=== PATIENT | male | born 1945 | race Caucasian/White ===

== ENCOUNTER → 2017-12-14 | Outpatient (CLI) | payer MEDICARE, BC ==
[~2017-12-14] MED LIST: ANTIDEPRESSANT; ARICEPT5 MG PO; ASPIRIN 32325 MG/TAB PO; CARBIDOPA & LEV1 TA1 PO; CLOPIDOGREL PO; COLACE 100100 MG/CAP PO; CYANOCOBAL1000 MCG/1; DOXYCYCLINE 10100 MG PO; LEVOTHROID0.125 MG PO; LEXAPRO10 MG PO; LIPITOR 10MG10 MG PO; MEDI-FIRST ASP325 MG PO; METOPROLOL SUC100 M2 PO; NAMENDA10 MG PO; PENTASA PO; SYNTHROID0.15 MG PO; TOPROL XL50 MG PO; TYLENOL 325MG325 MG PO; TYLENOL PM 5001 CAP PO; TYLENOL PM EXTR1 TA1 PO; UROXATRAL10 M1 PO; UROXATROL PO; VIAGRA; VIAGRA50 MG PO; ZESTRIL PO; [UNRECOGNIZED DRUG - CODE] PO
[2017-12-14 18:37] LABS: ANION GAP 11 mmol/L (7-16); BLOOD UREA NITROGEN 14 mg/dL (9-20); CALCIUM 8.8 mg/dL (8.4-10.2); CARBON DIOXIDE 26 mmol/L (22-30); CHLORIDE 102 mmol/L (98-107); CREATININE, serum 0.84 mg/dL (0.66-1.25); GLUCOSE 97 mg/dL (74-106); POTASSIUM 4.2 mmol/L (3.4-5.0); SODIUM 139 mmol/L (137-145)
[2017-12-14 18:54] LABS: TROPONIN-I < 0.012 ng/mL (0.000-0.034)
== END ==
LOC: COL.LAB 17:58
PROVIDERS: Internal Medicine Interventional Cardiology
DX: R07.89 Other chest pain (principal); Z95.0 Presence of cardiac pacemaker

== ENCOUNTER → 2017-12-14 | Outpatient (CLI) | payer MEDICARE, BC | LOC: COL.RAD 20:08 | DX: I71.2 Thoracic aortic aneurysm, without rupture (principal); I51.7 Cardiomegaly; S22.080A Wedge compression fracture of T11-T12 vertebra, initial encounter for closed fracture; R07.89 Other chest pain | CPT/HCPCS: Q9967 ==

== ENCOUNTER → 2017-12-14 | Emergency (ER) | payer MEDICARE, BC | LOC: COL.ER 20:01 | DX: Z72.9 Problem related to lifestyle, unspecified (principal) ==

== ENCOUNTER 2018-12-02 09:33 | Emergency (ER) | payer MEDICARE, BC ==
[~2018-12-02] VITALS: Ht 172.7 cm; Wt 90.9 kg
[~2018-12-02 09:33] MED LIST changes: +ARICEPT10 MG PO; +CALCIUM 600/VIT1 CA1 PO; +FLOMAX 0.40.4 MG/CAP PO; +LASIX 20MG TABL20 MG PO; +MULTI VITAMINS1 TAB PO; +NAMENDA 10MG TA10 MG PO; +REQUIP0.25 MG PO; +SYMMETREL100 M1 PO; +TOPROL XL 50MG50 MG PO; +VITAMIN D32000 IU PO
[2018-12-02 09:43] VITALS: TEMP 98.1
[2018-12-02 10:08] LABS: GRAN # 3.5 (1.4-6.5); GRAN % 64.5 % (42.2-75.2); HEMATOCRIT 42.5 % (42.0-52.0); HEMOGLOBIN 14.2 g/dl (13.5-18.0); LYMPH # 1.4 (1.2-3.4); LYMPH % 24.8 % (20.0-51.0); MEAN CELL VOLUME 94 fl (80.0-100.0); MEAN CORPUSCULAR HEMOGLOBIN 31 pg (27.0-31.0); MEAN CORPUSCULAR HGB CONC 33 g/dl (33.0-37.0); MEAN PLATELET VOLUME 8.9 fl (7.4-10.4); MONO # 0.6 (0.1-0.6); MONO % 10.3 % (1.7-9.3); PLATELET COUNT 242 K/mm3 (130-400); RED BLOOD COUNT 4.53 M/mm3 (4.20-5.60); REDCELL DISTRIBUTION WIDTH-CV 13.8 % (11.5-14.5)
[2018-12-02 10:15] LABS: ALBUMIN 4.3 gm/dL (3.5-5.0); CALCIUM 9.3 mg/dL (8.4-10.2); CREATININE, serum 0.77 (0.66-1.25); POTASSIUM 4.2 mmol/L (3.4-5.0); TOTAL PROTEIN 7.5 gm/dL (6.4-8.2)
[2018-12-02 10:26] LABS: TROPONIN-I 0.016 ng/mL (0.000-0.035)
[2018-12-02] MEDS ORDERED: IBU400 MG PO (11:09)
[2018-12-02 11:21] LABS: COLLECTION METHOD CLEAN CATCH
[2018-12-02 11:28] LABS: MUCOUS Present /lpf; PH 5 (5-8); SQUAMOUS EPITHELIAL None Seen /hpf; URINE APPEARANCE Clear; URINE BACTERIA Rare /hpf; URINE BILIRUBIN Negative (NEGATIVE); URINE BLOOD Negative (NEGATIVE); URINE COLOR Yellow; URINE GLUCOSE Negative (NEGATIVE); URINE KETONE Trace (NEGATIVE); URINE LEUKOCYTE ESTERASE Negative (NEGATIVE); URINE NITRATE Negative (NEGATIVE); URINE PROTEIN(semi-quant) Negative (NEGATIVE); URINE RBC 0-2 /hpf; URINE UROBILINOGEN Negative (NEGATIVE)
[2018-12-02 11:59] VITALS: BP 146/68; PULSE 59
== END 2018-12-02 12:00 | disposition home or self-care (01) ==
LOC: COL.ER 09:33
PROVIDERS: Emergency Medicine
DX: M54.5 Low back pain (principal); I25.10 Atherosclerotic heart disease of native coronary artery without angina pectoris; Z79.02 Long term (current) use of antithrombotics/antiplatelets; Z79.82 Long term (current) use of aspirin; Z79.899 Other long term (current) drug therapy; Z95.5 Presence of coronary angioplasty implant and graft; Z86.79 Personal history of other diseases of the circulatory system
CPT/HCPCS: J1885

== ENCOUNTER → 2019-02-21 | Outpatient (CLI) | payer MEDICARE, BC ==
[~2019-02-21] MED LIST changes: +IBU400 MG PO
== END ==
LOC: COL.RAD 12:10
DX: M51.26 Other intervertebral disc displacement, lumbar region (principal); M48.061 Spinal stenosis, lumbar region without neurogenic claudication

== ENCOUNTER 2019-03-08 15:39 | Emergency (ER) | payer MEDICARE, BC ==
[~2019-03-08] VITALS: Ht 172.7 cm; Wt 90.9 kg
[2019-03-08 15:43] VITALS: TEMP 98.2
[2019-03-08 16:52] LABS: COLLECTION METHOD CLEAN CATCH
[2019-03-08 16:59] LABS: PH 6 (5-8); SQUAMOUS EPITHELIAL None Seen /hpf; URINE APPEARANCE Clear; URINE BACTERIA None Seen /hpf; URINE BILIRUBIN Negative (NEGATIVE); URINE BLOOD Negative (NEGATIVE); URINE COLOR Yellow; URINE GLUCOSE Negative (NEGATIVE); URINE KETONE Negative (NEGATIVE); URINE LEUKOCYTE ESTERASE Negative (NEGATIVE); URINE NITRATE Negative (NEGATIVE); URINE PROTEIN(semi-quant) Negative (NEGATIVE); URINE RBC 0-2 /hpf; URINE UROBILINOGEN Negative (NEGATIVE)
[2019-03-08] MEDS ORDERED: LIDODERM 5% PATC1 EA TP (17:27)
[2019-03-08] MEDS ORDERED: FLEXERIL 1010 MG/TAB PO (17:27)
[2019-03-08] MEDS ORDERED: ULTRAM 50MG TAB50 MG PO (17:27)
[2019-03-08] MEDS ORDERED: PREDNISONE20 MG PO (17:27)
[2019-03-08 17:45] VITALS: BP 141/63; PULSE 63
== END 2019-03-08 17:44 | disposition home or self-care (01) ==
LOC: COL.ER 15:39
PROVIDERS: Emergency Medicine
DX: M54.16 Radiculopathy, lumbar region (principal); I25.10 Atherosclerotic heart disease of native coronary artery without angina pectoris; Z95.5 Presence of coronary angioplasty implant and graft; Z95.0 Presence of cardiac pacemaker; Z79.02 Long term (current) use of antithrombotics/antiplatelets; Z79.82 Long term (current) use of aspirin
CPT/HCPCS: J7512

== ENCOUNTER → 2019-04-04 | Outpatient (CLI) | payer MEDICARE, BC ==
[~2019-04-04] MED LIST changes: +FLEXERIL 1010 MG/TAB PO; +LIDODERM 5% PATC1 EA TP; +PREDNISONE20 MG PO; +ULTRAM 50MG TAB50 MG PO
== END ==
LOC: MHCPAIN 10:15
DX: G89.29 Other chronic pain (principal); M47.817 Spondylosis without myelopathy or radiculopathy, lumbosacral region; M54.16 Radiculopathy, lumbar region; M53.3 Sacrococcygeal disorders, not elsewhere classified
CPT/HCPCS: G0463

== ENCOUNTER → 2019-04-12 | Outpatient (CLI) | payer MEDICARE, BC | LOC: MHCPAIN 13:55 | DX: M47.817 Spondylosis without myelopathy or radiculopathy, lumbosacral region (principal); M54.16 Radiculopathy, lumbar region | CPT/HCPCS: J1100; Q9967 ==

== ENCOUNTER → 2019-05-17 | Outpatient (CLI) | payer MEDICARE, BC | LOC: MHCPAIN 12:26 | DX: M54.16 Radiculopathy, lumbar region (principal) | CPT/HCPCS: J1100; Q9967 ==

== ENCOUNTER → 2019-06-19 | Outpatient (CLI) | payer MEDICARE, BC | LOC: MHCPAIN 13:05 | DX: M47.817 Spondylosis without myelopathy or radiculopathy, lumbosacral region (principal); M54.16 Radiculopathy, lumbar region | CPT/HCPCS: G0463 ==

== ENCOUNTER 2020-01-26 20:24 | Inpatient (IN) | payer MEDICARE, BC ==
[~2020-01-26] VITALS: Ht 175.3 cm; Wt 92.2 kg
[2020-01-26 21:19] LABS: GRAN # 3.6 (1.4-6.5); GRAN % 76.4 % (42.2-75.2); LYMPH # 0.8 (1.2-3.4); LYMPH % 16.8 % (20.0-51.0); MEAN CELL VOLUME 90 fl (80.0-100.0); MEAN CORPUSCULAR HEMOGLOBIN 30 pg (27.0-31.0); MEAN CORPUSCULAR HGB CONC 33 g/dl (33.0-37.0); MEAN PLATELET VOLUME 10.4 fl (7.4-10.4); MONO # 0.3 (0.1-0.6); MONO % 6.4 % (1.7-9.3); PLATELET COUNT 200 K/mm3 (130-400); RED BLOOD COUNT 3.97 M/mm3 (4.20-5.60); REDCELL DISTRIBUTION WIDTH-CV 14.4 % (11.5-14.5)
[2020-01-26 21:22] LABS: HEMATOCRIT 35.9 % (42.0-52.0)
[2020-01-26 21:30] LABS: ALBUMIN 3.7 gm/dL (3.5-5.0); BILIRUBIN,TOTAL 0.8 mg/dL (0.0-1.0); CALCIUM 8.3 mg/dL (8.4-10.2); CREATININE, serum 0.85 (0.66-1.25); POTASSIUM 3.5 mmol/L (3.4-5.0); TOTAL PROTEIN 6.9 gm/dL (6.4-8.2)
[2020-01-26 21:43] LABS: TROPONIN-I 0.067 ng/mL (0.000-0.035)
--- NOTE | 2020-01-27 00:20 | NUR ---
Admitted to medical floor from ER- DX pneumonia, covid + pt alert/partially oriented, knows year/president, could not think of the month. On contact/Droplet Isolation. Sanjana MCLAUGHLIN here to see pt- order to decrease IV fluids of NS to 75cc/hr, pt has some edema to lower extremities . Dry cough, no o2 needed at this time. Sats on room air 94-95%. Pt denies any pain- call light in reach, understands not to get up without help- urinal at bedside.
[2020-01-27] MEDS ORDERED: TYLENOL 325MG325 MG PO (01:32)
[2020-01-27] MEDS ORDERED: SYMMETREL100 M1 PO (01:34)
[2020-01-27] MEDS ORDERED: ASACOL HD800 MG PO (01:35)
[2020-01-27] MEDS ORDERED: ASPIRIN 81M81 MG/TA2 PO (01:36)
[2020-01-27] MEDS ORDERED: LIPITOR 40MG TA40 MG PO (01:36)
[2020-01-27] MEDS ORDERED: CALCIUM 600MG+D1 TAB PO (01:38)
[2020-01-27] MEDS ORDERED: SINEMET 25/101 UDTAB PO (01:39)
[2020-01-27] MEDS ORDERED: CYANOCOBAL1000 MCG/M IM (01:42)
[2020-01-27] MEDS ORDERED: FLEXERIL 1010 MG/TAB PO (01:43)
[2020-01-27] MEDS ORDERED: DELSYM30 MG/5 ML PO (01:44)
[2020-01-27] MEDS ORDERED: BENADRYL25 M2 PO (01:45)
[2020-01-27] MEDS ORDERED: ARICEPT10 MG PO (01:47)
[2020-01-27] MEDS ORDERED: LASIX 20MG TABL20 MG PO (01:47)
[2020-01-27] MEDS ORDERED: MOTRIN 200200 MG/TAB PO (01:48)
[2020-01-27] MEDS ORDERED: SYNTHROID 0.10.15 MG PO (01:50)
[2020-01-27] MEDS ORDERED: LEXAPRO20 MG PO (01:50)
[2020-01-27] MEDS ORDERED: LIDODERM 5% PATC1 EA TP (01:51)
[2020-01-27] MEDS ORDERED: ONE-A-DAY ESSE1 EACH PO (01:52)
[2020-01-27] MEDS ORDERED: NAMENDA 10MG TA10 MG PO (01:52)
[2020-01-27] MEDS ORDERED: REQUIP0.25 MG PO (01:54)
[2020-01-27] MEDS ORDERED: TOPROL XL100 MG PO (02:05)
[2020-01-27] MEDS ORDERED: ULTRAM 50MG TAB50 MG PO (02:06)
[2020-01-27] MEDS ORDERED: MASON NATURAL2000 IU PO (02:06)
[2020-01-27 02:39] VITALS: BP 160/64; PULSE 62; TEMP 99.4
[2020-01-27] MEDS ORDERED: PROAIR RES117 MCG/Ac IH (02:46)
[2020-01-27] MEDS ORDERED: FLOMAX 0.40.4 MG/CAP PO (03:02)
--- NOTE | 2020-01-27 03:15 | NUR ---
Called to patients room by farm technician who was here to draw another troponin level- pt was out of bed with bed alarm going off, standing in bathroom taking off his depends with loose stool all over the floor and toilet and his gown- L/AC IV was also pulled out-- helped patient clean up, walked with him back to the chair, new linens on bed, urinal at bedside emptied of 600cc urine. Back to bed - alarm on {made sure it was connected to the call light system} no requests per patient- VSS. Sanjana MCLAUGHLIN informed of troponin of 0.089- no new orders. Pt denies chest pain or SOB. Contact/Droplet Isolation-
[2020-01-27 04:43] VITALS: BP 156/70; PULSE 76; TEMP 98.7
--- NOTE | 2020-01-27 06:30 | NUR ---
Has been resting for past couple hours- IV fluids continue at 75cc/hr per right AC IV site.
[2020-01-27 09:00] VITALS: BP 138/84; PULSE 63; TEMP 98.2
--- NOTE | 2020-01-27 09:45 | NUR ---
PT IN BED, NEEDING TO USE RESTROOM, STAND PIVOT TO BEDSIDE COMMODE. PT HAD LARGE AMOUNT OF HOYOS DIHARREA. PT SAYS HE HAS THIS EVERY 2-3 HOURS. PT PLEASANT, AOX4, VERY HARD OF HEARING, MEDICATION HUNG, VITALS REVIEWED, MEDICATIONS GIVEN, ASSESSMENT PERFORMED, LUNGS CTA. PT DENIES PAIN/DISCOMFORT. PT INCONTINENT OF URINE, BRIEF CHANGED ALONZO CARE PROVIDED, SHEETS CHANGED. IV SITE INTACT LAC. LABS DRAWN. PT REPORTS SOA BUT NO VISIBLE DISTRESS NOTED WITH EXERTION OR AT REST. PT HAS GLASSES IN PLACE, BED IN LOW POSITION, BED ALARM ON, EDUCATED ORNAMENTAL METAL FABRICATOR APPRENTICE LIGHT AND CALL LIGHT WITHIN REACH. FALL GOWN ADN SOCKS ON, UPDATED PT DAUGHTER, SHE REPORTS ONLY WANTING INFORMATION SHARED WITH HER AND HER BROTHER RJ WHOM ARE DPOA'S. PRIVACY PASSWORD PROVIDED. NO OTHER NEEDS AT THIS TIME.
[2020-01-27 10:33] LABS: GRAN # 4.2 (1.4-6.5); HEMOGLOBIN 11.8 g/dl (13.5-18.0); LYMPH # 0.5 (1.2-3.4); LYMPH % 10.5 % (20.0-51.0); MEAN CELL VOLUME 90 fl (80.0-100.0); MEAN CORPUSCULAR HEMOGLOBIN 30 pg (27.0-31.0); MEAN CORPUSCULAR HGB CONC 33 g/dl (33.0-37.0); MEAN PLATELET VOLUME 10.1 fl (7.4-10.4); MONO # 0.3 (0.1-0.6); MONO % 6.1 % (1.7-9.3); PLATELET COUNT 196 K/mm3 (130-400); RED BLOOD COUNT 3.94 M/mm3 (4.20-5.60); REDCELL DISTRIBUTION WIDTH-CV 14.3 % (11.5-14.5)
[2020-01-27 10:39] LABS: CREATININE, serum 0.69 (0.66-1.25); POTASSIUM 3.2 mmol/L (3.4-5.0)
[2020-01-27 10:45] LABS: HEMATOCRIT 35.5 % (42.0-52.0)
[2020-01-27 12:39] VITALS: BP 160/68; PULSE 65; TEMP 98.3
[2020-01-27 16:35] VITALS: BP 161/70; PULSE 64; TEMP 99.5
--- NOTE | 2020-01-27 16:46 | NUR ---
SW contacted contacted patient's daughter Jenni [phone]. Daughter stated that he currently lives at [facility]. Daughter provided that he does use a cane but is typically independent with his ADL's. Daughter provides that his PCP is Dr. Fior Santizo and that he is able to afford his medications at this time. Daughter states that she is the DPOA-, and that he plans to return back to [facility] upon DC. BHARGAV will continue to follow.
--- NOTE | 2020-01-27 17:05 | NUR ---
HIGHEST TEMP DURING SHIFT 99.5F. PT AOX4 DURING SHIFT, DENIES PAIN OR DISCOMFORT, PT [place], PT WEARS GLASSES, VITALS WITHIN NORMAL LIMITS, PT MEDICATIONS GIVEN, IV FLUIDS DC'D AND STOPPED, PT UNSTEADY ON FEET, BED ALARM SET, FALL GOWN AND SOCKS ON ALONG WITH SIGN ON DOOR. PT IN CONTACT DROPLET PRECAUTIONS, BEEN USING URINAL, ALSO USING BEDSIDE COMMODE WITH GAIT BELT. TURNED ON TV FOR PT AND BROUGHT IN FRESH WATER, NO OTHER NEEDS AT THIS TIME.
--- NOTE | 2020-01-27 19:00 | NUR ---
Received report from Gladis. Dinner meal given to patient. Bed alarm on. Patient on room air. With INT on left AC. Urinal on the bedside.
--- NOTE | 2020-01-27 19:44 | NUR ---
Patient went to the bathroom assisted to have a bowel movement. Patient had been coughing as well. Assisted back to bed and checked on his O2 sats and it was at 88% room air. Hooked patient to nasal cannula, O2 at 2lpm and re-checked his SPO2 and now it's at 94%.
[2020-01-27 19:48] VITALS: BP 155/85; PULSE 63; TEMP 99.6
[2020-01-28] VITALS (9 sets, daily range): BP systolic 150–188; BP diastolic 60–95; PULSE 59–88; TEMP 97.5–101.6
--- NOTE | 2020-01-28 04:45 | NUR ---
Patient had another episode of loose stools. Changed patient's bedsheets and briefs. He is a bit unsteady when walking. Provided walker and instructed patient to use it when he would try to stand. Installed a phone inside the room so patient's daughter can call and talk to him. He still have some cough. He is afebrile. Morning labs drawn.
[2020-01-28 05:13] LABS: GRAN # 8.7 (1.4-6.5); GRAN % 86.3 % (42.2-75.2); HEMATOCRIT 36.5 % (42.0-52.0); HEMOGLOBIN 12.1 g/dl (13.5-18.0); LYMPH # 0.9 (1.2-3.4); LYMPH % 9.2 % (20.0-51.0); MEAN CELL VOLUME 92 fl (80.0-100.0); MEAN CORPUSCULAR HEMOGLOBIN 30 pg (27.0-31.0); MEAN CORPUSCULAR HGB CONC 33 g/dl (33.0-37.0); MEAN PLATELET VOLUME 10.4 fl (7.4-10.4); MONO # 0.4 (0.1-0.6); MONO % 3.9 % (1.7-9.3); PLATELET COUNT 210 K/mm3 (130-400); RED BLOOD COUNT 3.99 M/mm3 (4.20-5.60); REDCELL DISTRIBUTION WIDTH-CV 14.4 % (11.5-14.5)
[2020-01-28 05:22] LABS: CALCIUM 8.4 mg/dL (8.4-10.2); CREATININE, serum 0.8 (0.66-1.25); MAGNESIUM 2.1 mg/dL (1.6-2.3); POTASSIUM 4.4 mmol/L (3.4-5.0)
--- NOTE | 2020-01-28 07:15 | NUR ---
PT PLEASANT, AOX4, VERY IMPULSIVE, NOW ON 4L NC DUE TO SOA AFTER EXERTION, ASSESSMENT PERFORMED, VITALS TAKEN, PT ESCORTED BACK TO BED, BED ALARM SET. PHONE IN ROOM, WILL BRING IN EXTENSION OXYGEN TUBING WITH MEDICATIONS.
--- NOTE | 2020-01-28 07:45 | NUR ---
PT SET CHAIR ALARM OFF DURING REPORT. PT INSTRUCTED TO WAIT UNTIL I CAME INTO ROOM. PT USED WALKER TO WALK TO BED. PT SOB AND LIPS CYANOTIC, SATTING 85% ON 2L ONCE BACK TO BED. TURNED UP TO 4L NC AND NOW SATTING 92-95%. PT IMPULSIVE BUT AOX4. VITALS TAKEN. EDUCATED TO WAIT UNTIL WE WERE IN ROOM TO GET UP. BED ALARM SET, FALL PRECAUTIONS IN PLACE
--- NOTE | 2020-01-28 09:51 | NUR ---
ENTERED PT ROOM, PT ATTEMPTING TO STAND UP WITH OXYGEN OFF OF FACE. ASKED PT WHERE HE WAS GOING AND HE SAID NO WHERE. ENCOURAGED HIM TO SIT BACK ON BED AND PLACED OXYGEN ON HIM. CHECKED PULSE OX, PT COUGHING REPEATEDLY AND HAVING EXTREME SOA. PT OXYGEN AT 79%, TURNED OXYGEN UP TO 6L AND IT ONLY WENT UP TO 86%. PT TURNED UP TO 8L, PLACED ON HIGH DOMINGO NASAL CANNULA, PT SWEATING, TOOK TEMP AXILLARY DUE TO SOA AND GOT 101.4. TYLENOL GIVEN WITH OTHER MEDS. PT STILL COUGHING BUT SOA HAS CEASED. PT BED ALARM SET, FALL PRECAUTIONS IN PLACE, EDUCATED TO NOT GET UP WITHOUT CALLING FOR HELP.
--- NOTE | 2020-01-28 11:10 | NUR ---
PT SET OFF BED ALARM. PLACED PPE ENTERED ROOM, PT IN BATHROOM WITH OXYGEN OFF, PLACED OXYGEN ON PT, PT SATTING AT 93% ON 8L HIGH FLOW NC . PT DIAPHORETIC AND REDDENED IN THE FACE, DENIES PAIN OR DISCOMFORT. PT WIPED DOWN AND GIVEN BED BATH, ALONZO CARE PROVIDED, PT AOX4. PT BED CHANGED, GOWN AND SOCKS CHANGED, PT UTILIZED WALKER TO GET BACK TO BED. VITALS TAKEN, TEMP 101.6. TYLENOL AND MUCUS RELIEF GIVEN. PT HAD HIGH BP BUT TRENDING DOWN. TURNED DOWN TEMP IN ROOM ALL THE WAY, PLACED COOL WASH CLOTH ON FOREHEAD. PT CALM IN BED, AFTER EXITING ROOM CONSULT TO PULMONOLOGY AND IFECTIOUS DISEASE PLACED.
--- NOTE | 2020-01-28 14:40 | NUR ---
Radio Control Crane Operator faxed updates to [facility]. SW attempted to contact the patient's daughter Jenni to introduce oneself, left message. Will continue to monitor.
--- NOTE | 2020-01-28 16:42 | NUR ---
The patient's daughter, Jenni contacted Morning News Producer. SW provided an update. Will continue to monitor.
--- NOTE | 2020-01-28 17:55 | NUR ---
pt pleasant, aox4, very impulsive getting out of bed, pt on 8L high flow NC, pt was febrile but came down with tylenol, pt no longer diaphoretic. pt has good intake and output. pt aspiration risk per speech therapy due to coughing once during test and shoveling food. no other needs at this time.
--- NOTE | 2020-01-28 18:32 | NUR ---
updated pt daughter, Jenni.
--- NOTE | 2020-01-28 20:00 | NUR ---
Received report from JAEL Griffith. a/ox4. Denies any pain or SOB at this time. Scheulded meds administered. 1+ assist to BSC with use of walker. Had moderate amount loose brown stool. Urinal at bedside. Made pt comfortable in bed. Tele monitor in place. Needs met. Call light within reach.
[2020-01-29] VITALS: BP 160/78; PULSE 63; TEMP 98.1
[2020-01-29 03:08] VITALS: BP 172/92; PULSE 67; TEMP 98
--- NOTE | 2020-01-29 03:38 | NUR ---
Pt able to use urinal however still incontinent or urine. Pt able to use call light for help. Breifs changed. Made pt comfortable in bed. Needs met. Call light within reach. Bed alarm set.
--- NOTE | 2020-01-29 07:12 | NUR ---
Report given to JAEL Reese.
[2020-01-29 07:24] LABS: BASO % 0.1 % (0.0-2.0); GRAN # 10.1 (1.4-6.5); GRAN % 88.4 % (42.2-75.2); HEMOGLOBIN 11.7 g/dl (13.5-18.0); LYMPH # 0.8 (1.2-3.4); LYMPH % 7.3 % (20.0-51.0); MEAN CELL VOLUME 91 fl (80.0-100.0); MEAN CORPUSCULAR HEMOGLOBIN 31 pg (27.0-31.0); MEAN CORPUSCULAR HGB CONC 34 g/dl (33.0-37.0); MEAN PLATELET VOLUME 10.9 fl (7.4-10.4); MONO # 0.4 (0.1-0.6); MONO % 3.2 % (1.7-9.3); PLATELET COUNT 232 K/mm3 (130-400); RED BLOOD COUNT 3.82 M/mm3 (4.20-5.60); REDCELL DISTRIBUTION WIDTH-CV 14.5 % (11.5-14.5)
[2020-01-29 07:25] LABS: HEMATOCRIT 34.8 % (42.0-52.0)
[2020-01-29 07:31] LABS: CALCIUM 8.2 mg/dL (8.4-10.2); CREATININE, serum 0.65 (0.66-1.25); POTASSIUM 3.5 mmol/L (3.4-5.0)
[2020-01-29 08:04] VITALS: BP 148/80; PULSE 61; TEMP 98
--- NOTE | 2020-01-29 09:30 | NUR ---
Pt laying in bed with eyes closed upon entry, he arouses to voice. He is oriented x4. His breathing is currently even and unlabored on 5L O2 via NC. O2 sat 96%, decreased oxygen to 4L without a drop in O2 sats. Will continue to monitor this. Pt does get a dry hacky cough when up ambulating. Ambulated with walker and assistance of one, pt shuffles when walking but steady. Denies any pain or SOB at this time. Continues to have loose bowels, occasionally incontinent. No needs at this time. Fall precautions in place.
[2020-01-29 11:50] VITALS: BP 152/82; PULSE 60; TEMP 97.9
--- NOTE | 2020-01-29 11:53 | NUR ---
Pt turned down to 3L O2 via NC with an O2 sat of 96%.
--- NOTE | 2020-01-29 15:24 | NUR ---
Lawyer faxed clinical updates to [facility] and will continue to follow.
--- NOTE | 2020-01-29 15:46 | NUR ---
Chichi from [facility] reports they are accepting their Covid+ residents back.
[2020-01-29 15:54] VITALS: BP 136/74; PULSE 62; TEMP 98.1
--- NOTE | 2020-01-29 18:23 | NUR ---
Pt had a few loose BM's through the day. Occasionally incontinent. Down on O2 requrirements. Fall precautions in place.
--- NOTE | 2020-01-29 20:00 | NUR ---
Received report from JAEL Reese. Pt resting in bed watching TV. NAD. Denies any pain or SOB at this time. On [id number]. Scheduled meds administered. INT to RAC intact, flushed, dressing CDI. Tele monitor in place. Pt able to use call light for needs. Incontinent of bowels, had 1 episode loose stool, pt cleaned and changed. Bed alarm set. Call light within reach. needs met
[2020-01-29 20:19] VITALS: BP 170/95; PULSE 66; TEMP 98.3
[2020-01-30] VITALS (8 sets, daily range): BP systolic 142–190; BP diastolic 63–92; PULSE 60–80; TEMP 98–98.3
--- NOTE | 2020-01-30 06:24 | NUR ---
Scheduled meds administered. PRN flexiril given per pt request for back pain and unable to sleep. Needs attended too. Bed alarm set. Call light within reach. Urinal at bedside. Had x1 large loose BM on this shift. Remained on 2LO2.
--- NOTE | 2020-01-30 06:53 | NUR ---
Report given to JAEL Earl.
[2020-01-30 07:29] LABS: BASO % 0.1 % (0.0-2.0); GRAN # 9.6 (1.4-6.5); GRAN % 85.1 % (42.2-75.2); HEMOGLOBIN 12.2 g/dl (13.5-18.0); LYMPH % 8.6 % (20.0-51.0); MEAN CELL VOLUME 90 fl (80.0-100.0); MEAN CORPUSCULAR HEMOGLOBIN 30 pg (27.0-31.0); MEAN CORPUSCULAR HGB CONC 33 g/dl (33.0-37.0); MEAN PLATELET VOLUME 10.7 fl (7.4-10.4); MONO # 0.6 (0.1-0.6); MONO % 5.2 % (1.7-9.3); PLATELET COUNT 272 K/mm3 (130-400); RED BLOOD COUNT 4.05 M/mm3 (4.20-5.60); REDCELL DISTRIBUTION WIDTH-CV 14.2 % (11.5-14.5)
[2020-01-30 07:30] LABS: HEMATOCRIT 36.5 % (42.0-52.0)
[2020-01-30 07:53] LABS: CALCIUM 8.3 mg/dL (8.4-10.2); CREATININE, serum 0.68 (0.66-1.25)
--- NOTE | 2020-01-30 14:52 | NUR ---
Fabric Worker Supervisor faxed updates to [facility]. The patient is currently on Remdesivir and will need to finish the course before discharge. Will continue to monitor.
--- NOTE | 2020-01-30 19:45 | NUR ---
Patient alert and oriented. denies any pain. patient had episodes of elevated BP 160-170's. patient resting in bed. wbc 11.3.
--- NOTE | 2020-01-30 20:00 | NUR ---
At time of assessment, patient is alert and oriented and hard of hearing. He ambulates to the bathroom with walker and has an episode of diarrhea. He is afebrile at this time and wears 2L oxygen. He has a consistent dry cough but does not show any increased work of breathing. Lung sounds are diminished throughout but clear, with an occassional wheeze. A new lidocaine patch is applied to the patient's lower back. Will continue to monitor.
--- NOTE | 2020-01-30 22:00 | NUR ---
Patient's BP is 190/92 at this time. 10 mg hydralazine adminstered. Will recheck and monitor.
[2020-01-31 03:02] VITALS: BP 152/66; PULSE 61; TEMP 98.3
--- NOTE | 2020-01-31 06:19 | NUR ---
Patient has remained afebrile throughout the night with one episode of diarrhea. He is on 2L oxygen and still has a persistent dry cough. No complaints of pain overnight. Will continue to monitor.
[2020-01-31 07:09] LABS: HEMATOCRIT 37.9 % (42.0-52.0); HEMOGLOBIN 12.5 g/dl (13.5-18.0); MEAN CELL VOLUME 91 fl (80.0-100.0); MEAN CORPUSCULAR HEMOGLOBIN 30 pg (27.0-31.0); MEAN CORPUSCULAR HGB CONC 33 g/dl (33.0-37.0); MEAN PLATELET VOLUME 10.8 fl (7.4-10.4); PLATELET COUNT 309 K/mm3 (130-400); RED BLOOD COUNT 4.15 M/mm3 (4.20-5.60); REDCELL DISTRIBUTION WIDTH-CV 14.3 % (11.5-14.5)
[2020-01-31 07:28] LABS: CALCIUM 8.3 mg/dL (8.4-10.2); CREATININE, serum 0.67 (0.66-1.25); POTASSIUM 3.8 mmol/L (3.4-5.0)
--- NOTE | 2020-01-31 07:35 | NUR ---
Pt is resting comfortably in bed at this time. Pt has no c/o pain or discomfort at this time. Assessment complete. Call light within reach.
[2020-01-31 07:36] LABS: BAND 5 % (0-10); LYMPHOCYTE 10 % (20.0-51.0); NEUTROPHILS 81 % (42.0-75.2); PLATELET ESTIMATE NORMAL (NORMAL)
--- NOTE | 2020-01-31 11:54 | NUR ---
Beauty School Instructor faxed updates to [facility]. BHARGAV contacted Chichi with [facility] to provide an update on the patient. BHARGAV attempted to contact the patient's daughter, Jenni to provide an update, left message.
[2020-01-31 12:17] VITALS: BP 146/67; PULSE 78; TEMP 98.2
[2020-01-31 17:16] VITALS: BP 134/68; PULSE 82; TEMP 98.5
--- NOTE | 2020-01-31 19:49 | NUR ---
PT HAD AN UNEVENTFUL DAY. PT IS AN HAS BEEN AFEBRILE, HOWEVER STILL HAS ISSUED WITH DYSPNEA ON EXERTION. PT EATS WELL, AND HAS BEEN DRINKING WELL. VSS THROUGHOUT THE DAY, NO NEED FOR HYDRALAZINE THIS SHIFT. PT DID HAVE ONE LARGE SOFT BM. ASIDE FROM THE DYSPNEA, PT SEEMS TO BE IMPROVING. REPORT GIVEN TO NIGHT RN.
--- NOTE | 2020-01-31 20:00 | NUR ---
Assessment complete at this time. Patient is alert and oriented but drowsy in bed. He still has a consistent dry cough and is wearing 2L oxygen. He complains of mild pain in his abdomen; bowel sounds are audible in all quadrants and patient has had a bowel movement today. No edema is present. Patient is currently afebrile. Will continue to monitor.
[2020-01-31 20:56] VITALS: BP 166/71; PULSE 67; TEMP 98
[2020-01-31 22:57] VITALS: BP 168/78; PULSE 75; TEMP 98.5
[2020-02-01 03:55] VITALS: BP 160/73; PULSE 75; TEMP 98.3
--- NOTE | 2020-02-01 05:09 | NUR ---
Patient has had a restful night with no complaints. He has remained afebrile and has not had any diarrhea. Daughter Jenni was updated overnight on patient's current status. No new concerns. Will continue to monitor.
--- NOTE | 2020-02-01 06:52 | NUR ---
PT CURRENTLY SLEEPING. HE DOES HAVE AN ANTIBIOTIC RUNNING AT THIS TIME. WHEN THE ANTIBIOTIC IS COMPLETE, ASSESSMENT WILL BE COMPLETED. PT HAS NO WANTS AT THIS TIME. CALL LIGHT WITHIN REACH, NO FURTHER CONCERNS.
--- NOTE | 2020-02-01 08:18 | NUR ---
Pt was unable to make it to the restroom to have a bowel movement. It is still soft bowel movements, not diarrhea. Pt does have Crohns which causes a lot of the bowel issues. Pt assessment completed. Pt was cleaned up and telemetry stickers replaced at this time. Pt has no current needs at this time. Will continue to monitor throught this shift. Call light at bedside; encouraged pt to tell the social media community manager what he needed over the call light so we can enter the room with everything we need. Pt acknowledged and understood. No further concerns.
[2020-02-01 08:22] VITALS: BP 158/62; PULSE 63; TEMP 98.1
--- NOTE | 2020-02-01 10:59 | NUR ---
Electronic Field Service [facility] regarding the possiblity of accommodating a weekend discharge. Chichi will staff with her team then inform this SW.
[2020-02-01 13:39] VITALS: BP 218/98; PULSE 67; TEMP 98.7
--- NOTE | 2020-02-01 14:50 | NUR ---
PT'S BLOOD PRESSURE WAS VERY HIGH UPON LAST ASSESSMENT. PT GIVEN HYDRALAZINE.
--- NOTE | 2020-02-01 15:30 | NUR ---
The patient's daughter, Jenni contacted this BHARGAV. She is concerned that the patient will not get the care he needs once he returns to [place] and the possibility of needing further rehab. BHARGAV informed the patient that local SNFs are not taking patients for rehab that are Covid+. Senior Procurement Manager discuss options. Jenni was open to sending referrals to [facility], [facility], and [facility]. Referrals faxed. BHARGAV contacted [facility] Director to inquire about them taking Covid + patients. She will talk with her team then inform BHARGAV. BHARGAV contacted Randy with [facility]. He reports if the patient qualifies he would not be able to do anything until Tuesday (02/04) of next week. BHARGAV contacted Leida #[phone] to inform her of the referral. BHARGAV contacted andreas Hairston. Will continue to follow.
[2020-02-01 15:42] VITALS: BP 168/76; PULSE 60; TEMP 98.5
--- NOTE | 2020-02-01 16:06 | NUR ---
Randy from [facility] reports the patient qualifies for services. SW contacted the patient's daughter, Jenni to provide an update. SW collaborated the above information with the patient's nurse and hospitalist.
--- NOTE | 2020-02-01 16:21 | NUR ---
Brigette with [facility] contacted Nail Machine Operator. She reports their Covid unit is currently closed and are not taking Covid + patients at this time.
[2020-02-01 19:48] VITALS: BP 182/72; PULSE 82; TEMP 98.2
--- NOTE | 2020-02-01 20:30 | NUR ---
Received report from Ginny. Seen patient awake in bed. Assisted him in the bathroom. He uses his walker. He had loose bowel movement. Briefs and bed linens were changed. On O2 at 2lpm via NC. He still have occasional cough. He has dyspnea on exertion. With INT on right AC, flushes well. Noted to have some bruises on his right AC. Bed alarm on. Call light within reach. Urinal at the bedside.
[2020-02-02] VITALS (8 sets, daily range): BP systolic 132–172; BP diastolic 61–90; PULSE 61–86; TEMP 97.2–99.1
--- NOTE | 2020-02-02 06:26 | NUR ---
Patient had less coughing episodes this night. He is on O2 at 1lpm via NC. He had one medium loose bowel movement. He is afebrile. He denies pain. Urinal at the bedside.
--- NOTE | 2020-02-02 07:30 | NUR ---
PATIENT RESTING IN BED. NO OTHER NEEDS AT THIS TIME
--- NOTE | 2020-02-02 08:54 | NUR ---
PATIENT ASSESSMENT COMPLETED. BREAKFAST IS PROVIDED REQUESTED TO EAT IN BED. DENIES PAIN OR OTHER NEEDS. O2 AT 1L
--- NOTE | 2020-02-02 13:14 | NUR ---
PATIENT AWAKENS EASILY FOR LUNCH. RT AC ACCESSED WITH 23 GA BUTTERFLY NEEDLE FOR LAB DRAW TOLERATES WELL.
--- NOTE | 2020-02-02 19:20 | NUR ---
Received report from Allegra. Patient awake, lying in bed. On O2 at 1lpm via NC. Denies pain. Bed alarm on. Call light within reach.
--- NOTE | 2020-02-02 23:15 | NUR ---
Increased patient's oxygen to 2lpm via NC. Patient has been coughing and SPO2 was at 89% on 1lpm. Now patient's SPO2 was at 92%. Melatonin given as he was requesting for sleeping pills.
[2020-02-03 04:48] VITALS: BP 150/70; PULSE 70; TEMP 98.1
[2020-02-03 05:39] LABS: BASO % 0.1 % (0.0-2.0); GRAN % 85.6 % (42.2-75.2); HEMOGLOBIN 12.1 g/dl (13.5-18.0); LYMPH # 0.6 (1.2-3.4); LYMPH % 6.8 % (20.0-51.0); MEAN CELL VOLUME 89 fl (80.0-100.0); MEAN CORPUSCULAR HEMOGLOBIN 30 pg (27.0-31.0); MEAN CORPUSCULAR HGB CONC 34 g/dl (33.0-37.0); MEAN PLATELET VOLUME 10.1 fl (7.4-10.4); MONO # 0.6 (0.1-0.6); PLATELET COUNT 333 K/mm3 (130-400); RED BLOOD COUNT 4.01 M/mm3 (4.20-5.60); REDCELL DISTRIBUTION WIDTH-CV 14.3 % (11.5-14.5)
[2020-02-03 05:43] LABS: HEMATOCRIT 35.7 % (42.0-52.0)
[2020-02-03 05:53] LABS: CREATININE, serum 0.65 (0.66-1.25); POTASSIUM 3.9 mmol/L (3.4-5.0)
--- NOTE | 2020-02-03 06:07 | NUR ---
Patient had uneventful night. He states he was able to sleep. He is afebrile. No other complains noted.
--- NOTE | 2020-02-03 06:57 | NUR ---
PATIENT SLEEPING IN BED. NO DISTRESS NOTED
[2020-02-03 08:58] VITALS: BP 178/78; PULSE 61; TEMP 98.8
--- NOTE | 2020-02-03 09:15 | NUR ---
PATIENT ASSESSMENT COMPLETED. HE HAD A SMALL LOOSE INCONTINENT BOWEL MOVEMENT. HE WAS ASSISTED WITH CLEAN UP AND SHOWER WAS PROVIDED. O2 AT 2L VIA NC. DENIES PAIN OR OTHER NEEDS
[2020-02-03 12:36] VITALS: BP 170/68; PULSE 66; TEMP 97.9
[2020-02-03 16:39] VITALS: BP 172/84; PULSE 73; TEMP 99.1
[2020-02-03 20:30] VITALS: BP 133/58; PULSE 60; TEMP 98.5
[2020-02-04] VITALS (7 sets, daily range): BP systolic 130–160; BP diastolic 68–92; PULSE 60–70; TEMP 97.8–100.4
--- NOTE | 2020-02-04 05:07 | NUR ---
Patient has rested well throughout the night. Noted to have a cough throughout the night. No sputum present at this time. Patient independent in the bed. Utilizes urinal for voiding. Patient continues on 2L via nasal cannula. Oxygen saturations are within normal limits. Noted to continue to be hypertensive, but blood pressures are looking better than the day shift values and patient hasn't required any PRN medication for this. Patient tolerating fluids well. Noted to be febrile this morning at 100.4. PRN Tylenol administered and recheck noted to be 98.9. Patient denies pain. No episodes of diarrhea this shift. Will continue to monitor.
--- NOTE | 2020-02-04 07:50 | NUR ---
At this time I was gowning up to go into room 306 when bed alarm in 305 went off. I immediately reverted and opened 305's door to find patient standing up from the floor. I questioned patient as to what happened and he states that he was going to the restroom. When I asked if he fell he said yes. Patient denies pain or being hurt. No bruising or wounds are visible at this time. Patient repeatedly denied pain. I helped the patient to the bed in order to don my PPE corectly. Once gowned I assisted the patient to the restroom via his walker, patient was too impulsive to allow me to put on a gait belt or put his socks back on. Patient ambulated well with the walker. Patient was given a new gown, and new brief as he had been incontinent of stool. Patient is now back in bed, comfortable, denies other needs. Call light is in reach. Bed alarm is set. Will continue to monitor.
--- NOTE | 2020-02-04 09:19 | NUR ---
Topographic Computator faxed updates to Randy with [facility].
--- NOTE | 2020-02-04 10:07 | NUR ---
Randy with [facility] reports they will possibly have a bed available tomorrow Tuesday, 02/04. Will continue to follow.
--- NOTE | 2020-02-04 13:36 | NUR ---
Patient has been comfortable in bed since this morning watching television. Bed alarm went off twice but patient was only changing positions, not attempting to get out of bed. Patient is aware to call before getting up to the restroom. Call light is in reach. Bed alarm is set.
--- NOTE | 2020-02-04 17:23 | NUR ---
Patient has had no other issues through out the day. He has been voiding in the urinal. He has not attempted to get out of bed since this morning. Patient has eaten all his meals with no issues. Dinner was provided to the patient. No other needs were expressed. Fall precautions are in place. Call light is in reach. Bed alarm is set.
--- NOTE | 2020-02-04 18:09 | NUR ---
Patients bed alarm went off at this time. I immediately opened the door and patient was standing at the bedside. I told him to sit and wait for me to come in. Patient was very impatient and impulsive at this time. Patient was assisted to the restroom. Patient was incontinent of loose stool. Brief was full. Bottom is reddened but with not open skin. A new brief and gown was provided to the patient. Tanmay on the bed was changed, new sheet provided. Patient is now comfortable back in bed. Fall precautions in place. Comb provided per request. No other needs. Bed alarm set.
--- NOTE | 2020-02-04 20:00 | NUR ---
Assessment complete. Patient's temperature is 100.2 and PRN Tylenol is adminstered. He answers orientation questions correctly but still requires frequent reorienting. Lungs are clear but diminished. Patient states he is not in any pain. He wears 2 liters oxygen via nasal cannula and is tolerating well. Patient's daughter, Jenni is updated on patient's current status and fall that occurred during dayshift. No injuries are present from fall. Will continue to monitor.
[2020-02-05] VITALS: BP 168/79; PULSE 73; TEMP 98.5
[2020-02-05 04:01] VITALS: BP 138/68; PULSE 62; TEMP 98
[2020-02-05 06:14] LABS: HEMATOCRIT 39.9 % (42.0-52.0); HEMOGLOBIN 13.3 g/dl (13.5-18.0); MEAN CELL VOLUME 91 fl (80.0-100.0); MEAN CORPUSCULAR HEMOGLOBIN 30 pg (27.0-31.0); MEAN CORPUSCULAR HGB CONC 33 g/dl (33.0-37.0); MEAN PLATELET VOLUME 10.3 fl (7.4-10.4); PLATELET COUNT 350 K/mm3 (130-400); REDCELL DISTRIBUTION WIDTH-CV 14.5 % (11.5-14.5)
--- NOTE | 2020-02-05 06:17 | NUR ---
Patient has had a restful night. He has tried to get up twice by himself; Bed alarm on. He has had one loose bowel movement in the toilet overnigt. He still wears 2 liters 02 via nasal cannula and is tolerating well. TMAX overnight was 100.4 and was treated with Tylenol. Will continue to monitor.
[2020-02-05 06:26] LABS: CALCIUM 8.3 mg/dL (8.4-10.2); CREATININE, serum 0.76 (0.66-1.25); POTASSIUM 4.1 mmol/L (3.4-5.0)
[2020-02-05 07:55] LABS: BAND 6 % (0-10); LYMPHOCYTE 9 % (20.0-51.0); NEUTROPHILS 83 % (42.0-75.2); PLATELET ESTIMATE NORMAL (NORMAL)
--- NOTE | 2020-02-05 07:56 | NUR ---
Middle School Reading Teacher faxed updates to Randy with [facility].
[2020-02-05 08:01] VITALS: BP 138/76; PULSE 63; TEMP 97.8
--- NOTE | 2020-02-05 08:44 | NUR ---
Assessment complete. Patient is awake and alert in bed at this time, just finished breakfast. States that he feels pretty good today. Patient used the urinal this morning to void and denies the need to have a bowel movement at this time. IV site is CD&I, flushed well. Patient denies any pain or discomfort. I reminded the patient to call if he needs to get up, he expressed understanding. TV was turned on per request. Patient denies other needs at the time. Will continue to monitor. Bed alarm is set.
[2020-02-05] MEDS ORDERED: PRINIVIL20 MG PO (11:32)
[2020-02-05] MEDS ORDERED: CARDIZEM 30MG T30 MG PO (11:32)
[2020-02-05 12:10] VITALS: BP 140/82; PULSE 63; TEMP 98.3
[2020-02-05 16:07] VITALS: BP 160/79; PULSE 63; TEMP 98.6
[2020-02-05 18:22] VITALS: BP 160/79; PULSE 63; TEMP 98.6
--- NOTE | 2020-02-05 19:07 | NUR ---
PATIENT LEFT THE FLOOR AT THIS TIME. PAPERWORK COMPLETED. MASK ON PATIENT. FRESH BLANKET APPLIED.
--- NOTE | 2020-02-06 09:01 | NUR ---
(late entry 02/04) The patient discharged to [facility] 02/04. The patient was transported by [facility] at 1800. The patient's daughter Jenni was in agreeance. SW faxed discharge orders. There are no additional needs.
== END 2020-02-05 19:07 | disposition short-term general hospital (02) | DRG 177 ==
LOC: COL.ER 20:24 → MEDICAL 21:47 → SURG 01-31 08:39 → MEDICAL 02-05 19:07
PROVIDERS: Emergency Medicine; Internal Medicine Pulmonary Disease; Nurse Practitioner Primary Care; Physician Assistant; ADMIT Hospitalist
DX: U07.1 COVID-19 (principal); J12.89 Other viral pneumonia; J96.01 Acute respiratory failure with hypoxia; K50.90 Crohn's disease, unspecified, without complications; G20 Parkinson's disease; F02.80 Dementia in other diseases classified elsewhere, unspecified severity, without behavioral disturbance, psychotic disturbance, mood disturbance, and anxiety; I25.10 Atherosclerotic heart disease of native coronary artery without angina pectoris; E03.9 Hypothyroidism, unspecified; I11.0 Hypertensive heart disease with heart failure; I50.9 Heart failure, unspecified; N40.0 Benign prostatic hyperplasia without lower urinary tract symptoms; G47.33 Obstructive sleep apnea (adult) (pediatric); E87.6 Hypokalemia; Z95.5 Presence of coronary angioplasty implant and graft; Z87.891 Personal history of nicotine dependence; Z88.0 Allergy status to penicillin; Z88.5 Allergy status to narcotic agent
CPT/HCPCS: 99222-AI; 99231-AI; 99232-AI; 99233-AI; 99239; A9284; J0360; J0456; J0696; J1100; J1650; J1940; J3420; J7030; J7050

== ENCOUNTER → 2020-11-04 | Outpatient (CLI) | payer MEDICARE, BC ==
[~2020-11-04] MED LIST changes: +ASACOL HD800 MG PO; +ASPIRIN 81M81 MG/TA2 PO; +BENADRYL25 M2 PO; +CALCIUM 600MG+D1 TAB PO; +CARDIZEM 30MG T30 MG PO; +CYANOCOBAL1000 MCG/M IM; +DELSYM30 MG/5 ML PO; +LEXAPRO20 MG PO; +LIPITOR 40MG TA40 MG PO; +MASON NATURAL2000 IU PO; +MOTRIN 200200 MG/TAB PO; +ONE-A-DAY ESSE1 EACH PO; +PRINIVIL20 MG PO; +PROAIR RES117 MCG/Ac IH; +SINEMET 25/101 UDTAB PO; +SYNTHROID 0.10.15 MG PO; +TOPROL XL100 MG PO
== END ==
LOC: COL.RAD 06:39
DX: I65.23 Occlusion and stenosis of bilateral carotid arteries (principal); I65.01 Occlusion and stenosis of right vertebral artery; I65.22 Occlusion and stenosis of left carotid artery
CPT/HCPCS: Q9967

== ENCOUNTER → 2021-12-03 | Outpatient (CLI) | payer MEDICARE, BC | LOC: ZCOL.LAB 12:05 | DX: R05.1 Acute cough (principal) ==

== ENCOUNTER 2023-07-01 07:17 | Day surgery (SDC) | payer MEDICARE, BC ==
[~2023-07-01] VITALS: Ht 175.3 cm; Wt 81.5 kg
[~2023-07-01 07:17] MED LIST changes: +LR 1,000 ML IV SCH; +Ondansetron 4 MG/2 ML VIAL IV PRN; +PEPCID 20MG TAB20 MG PO
[2023-07-01 07:25] VITALS: BP 143/58; PULSE 66; TEMP 97
[2023-07-01] MEDS ORDERED: IMDUR 60MG60 MG/TAB PO (07:52)
--- NOTE | 2023-07-01 07:55 | NUR ---
The patient was brought back to [facility] via wheelchair at this time. The patient transferred from the wheelchair to the recliner in his room with the stand by assistance of one nurse and appeared to tolerate the activity well. Vital signs obtained. Consent signed. 20G IV started in right hand with one stick, LR infusing without difficulty. Assessment completed. Home medications reconcilled. Warm blanket provided. Call light is within reach. Daughter at bedside. Denies any further needs.
[2023-07-01] MEDS ORDERED: Lidocaine PF 2% (20 MG/ML) 5 ML VIAL ONE (09:07)
[2023-07-01 09:45] VITALS: BP 154/67; PULSE 62; TEMP 98
[2023-07-01 10:00] VITALS: BP 134/62; PULSE 71
--- NOTE | 2023-07-01 17:34 | NUR ---
[id number]: PT TO [facility] S/P EGD W/ BX, HPYLORI ASSAY L&O, PLACED ON MONITOR, VSS ON RA RECEIVED REPORT AND ASSUMED CARE OF PT FROM ENDO NUT CHOPPER AT BEDSIDE PROVIDED FOOD/FLUIDS, TOLERATING WELL MD IN TO SEE PT POST-PROCEDURE PT HAS REMAINED A&O, NAD, VSS ON RA, TOLERATING PO, IS WITHOUT SIGNIFICANT COMPLAINT, WITH SAFE GAIT THRU OUT STAY IV D/C'D. D/C INSTRUCTIONS, ANY FOLLOW UP REVIEWED AND HANDED TO PT. ALL QUESTIONS AND CONCERNS ADDRESSED TO PT SATISFACTION. TAKEN TO EXIT VIA W/C WITH ALL BELONGINGS AND PAPERWORK IN HAND, ASSISTED INTO PASSENGER SEAT OF POV. DTR TO DRIVE HOME.
== END 2023-07-01 10:20 | disposition home or self-care (01) ==
LOC: SDCO 07:17
DX: K29.30 Chronic superficial gastritis without bleeding (principal); K29.80 Duodenitis without bleeding; R63.4 Abnormal weight loss; Z87.891 Personal history of nicotine dependence
CPT/HCPCS: J2704; J7120

== ENCOUNTER 2024-01-27 19:11 | Emergency (ER) | payer MEDICARE, BC ==
[~2024-01-27] VITALS: Ht 172.7 cm; Wt 86.4 kg
[~2024-01-27 19:11] MED LIST changes: -ASACOL HD800 MG PO; +IMDUR 60MG60 MG/TAB PO; +LIALDA 1.2 GM1.2 GM PO; -LR 1,000 ML IV SCH; -Ondansetron 4 MG/2 ML VIAL IV PRN
[2024-01-27 19:18] VITALS: TEMP 98.7
[2024-01-27 20:28] LABS: BASO % 0.1 % (0.0-2.0); GRAN # 8.4 K/mm3 (1.4-6.5); GRAN % 81.7 % (42.2-75.2); HEMATOCRIT 41.5 % (42.0-52.0); HEMOGLOBIN 13.5 g/dl (13.5-18.0); LYMPH % 9.5 % (20.0-51.0); MEAN CELL VOLUME 91 fl (80.0-100.0); MEAN CORPUSCULAR HEMOGLOBIN 30 pg (27-31); MEAN CORPUSCULAR HGB CONC 33 g/dl (33.0-37.0); MEAN PLATELET VOLUME 9.6 fl (7.4-10.4); MONO # 0.8 K/mm3 (0.1-0.6); MONO % 8.1 % (1.7-9.3); PLATELET COUNT 266 K/mm3 (130-400); RED BLOOD COUNT 4.56 M/mm3 (4.20-5.60); REDCELL DISTRIBUTION WIDTH-CV 16.6 % (11.5-14.5)
[2024-01-27 20:49] LABS: BILIRUBIN,TOTAL 1.3 mg/dL (0.2-1.2); CALCIUM 9.1 mg/dL (8.4-10.2); CREATININE, serum 1.09 mg/dL (0.72-1.25); TOTAL PROTEIN 7.4 g/dl (6.2-8.1)
[2024-01-27 20:56] LABS: TROPONIN-I 0.03 ng/mL (0.00-0.033)
[2024-01-27 21:06] LABS: COLLECTION METHOD CLEAN CATCH
[2024-01-27 21:31] LABS: URINE APPEARANCE CLEAR (CLEAR/HAZY); URINE BLOOD NEGATIVE (NEGATIVE); URINE COLOR YELLOW (YELLOW); URINE GLUCOSE NEGATIVE (NEGATIVE); URINE KETONE TRACE (NEGATIVE); URINE NITRATE NEGATIVE (NEGATIVE); URINE PROTEIN(semi-quant) 1+ (NEGATIVE); URINE UROBILINOGEN 0.2 E.U/dL (0.2-1.0)
[2024-01-27 22:00] VITALS: BP 159/65; PULSE 60
== END 2024-01-27 22:00 | disposition home or self-care (01) ==
LOC: COL.ER 19:11
PROVIDERS: Nurse Practitioner Primary Care
DX: S00.93XA Contusion of unspecified part of head, initial encounter (principal); S50.812A Abrasion of left forearm, initial encounter; Z87.891 Personal history of nicotine dependence; W19.XXXA Unspecified fall, initial encounter; Y92.89 Other specified places as the place of occurrence of the external cause

== ENCOUNTER 2024-01-29 06:02 | Inpatient (IN) | payer MEDICARE, BC ==
[~2024-01-29] VITALS: Ht 180.3 cm; Wt 86.4 kg
[2024-01-29 06:35] LABS: BASO % 0.1 % (0.0-2.0); GRAN # 5.6 K/mm3 (1.4-6.5); GRAN % 74.9 % (42.2-75.2); HEMATOCRIT 40.4 % (42.0-52.0); HEMOGLOBIN 13.2 g/dl (13.5-18.0); LYMPH # 1.1 K/mm3 (1.2-3.4); LYMPH % 14.9 % (20.0-51.0); MEAN CELL VOLUME 91 fl (80.0-100.0); MEAN CORPUSCULAR HEMOGLOBIN 30 pg (27-31); MEAN CORPUSCULAR HGB CONC 33 g/dl (33.0-37.0); MONO # 0.7 K/mm3 (0.1-0.6); MONO % 9.7 % (1.7-9.3); PLATELET COUNT 247 K/mm3 (130-400); RED BLOOD COUNT 4.44 M/mm3 (4.20-5.60); REDCELL DISTRIBUTION WIDTH-CV 16.8 % (11.5-14.5)
[2024-01-29 06:53] LABS: ALBUMIN 3.8 g/dL (3.4-4.8); BILIRUBIN,TOTAL 1.6 mg/dL (0.2-1.2); CALCIUM 9.1 mg/dL (8.4-10.2); CREATININE, serum 1.13 mg/dL (0.72-1.25); POTASSIUM 3.8 mEq/L (3.5-4.5); TOTAL PROTEIN 7.1 g/dl (6.2-8.1)
[2024-01-29 06:54] LABS: PARTIAL THROMBOPLASTIN TIME 27.5 SECONDS (26.0-37.0); PROTHROMBIN TIME 11.3 SECONDS (9.7-12.8)
[2024-01-29 07:07] LABS: TROPONIN-I 0.036 ng/mL (0.00-0.033)
--- NOTE | 2024-01-29 09:03 | NUR ---
SW consulted to see patient to assist with placement. Chart reviewed. SW met with daughter in ED room, patient sleeping soundly. Daughter Amie Park ([phone]) reported that patient has lived at [facility] for 6.5 years, sees Dr. Alegre or [facility] for healthcare. He uses [facility] [place] or [place] for medications. Patient has cane, wheelchair, walker and medic alert as DME. Patient is covered by Medicare and [facility]. Patient lists his daughter Amie as DPOA and his son Srinath Sin ([phone]) as alternate DPOA. Daughter reports patient has history of TBI and shuffles when he walks. Patient is independent with his ADLs but has constant reminders from AL staff to ask for help when doing personal care. Patient does not remember to push his button for assistance per daughter's report. Patient has had multiple falls over the past week, was in ED on 01/26 after fall and again this morning after falling and hitting his head. PT consulted to assess patient for safety. Patient difficult to wake in room. Daughter has contacted [facility] and was informed that patient cannot return due to safety concerns. Daughter in agreement.
[2024-01-29] MEDS ORDERED: Lidocaine 4% Topical Patch TP SCH ×3 (09:28→21:00)
[2024-01-29] MEDS ORDERED: Acetaminophen 325 MG TAB PO PRN (09:30)
[2024-01-29] MEDS ORDERED: Ondansetron 4 MG/2 ML VIAL IV PRN (09:30)
[2024-01-29] MEDS ORDERED: Docusate Sodium 100 MG CAP PO PRN (09:30)
[2024-01-29] MEDS ORDERED: Polyethylene Glycol 3350 17 GM PDS PO PRN (09:30)
[2024-01-29] MEDS ORDERED: Mesalamine DR 1.2 GM TAB PO SCH (11:00)
--- NOTE | 2024-01-29 11:17 | NUR ---
SW met with daughter in room. Patient sleeping soundly. Provided Medicare.gov list of SNFs for daughter to review. Dtr provided copy of DNR for patient's chart. Educated daughter on skilled rehab qualifications and Medicare coverage of rehab. Dtr will let SW know her preferences for referrals. Discharge plan: SNF
[2024-01-29] MEDS ORDERED: ALLEGRA 180MG180 MG PO (11:55)
[2024-01-29] MEDS ORDERED: BENADRYL25 M2 PO (11:58)
[2024-01-29] MEDS ORDERED: RT ADVAIR 228 DISKUS IH (12:00)
[2024-01-29] MEDS ORDERED: ADVIL200 MG PO (12:02)
[2024-01-29] MEDS ORDERED: MELATONIN3 M1 PO (12:05)
[2024-01-29] MEDS ORDERED: PEPCID 20MG TAB20 MG PO (12:07)
[2024-01-29] MEDS ORDERED: TESSALON P100 MG/CAP PO (12:09)
[2024-01-29] MEDS ORDERED: AIRBORNE CHEWA1 EAC1 PO (12:11)
[2024-01-29] MEDS ORDERED: Loratadine 10 MG TAB PO PRN (12:45)
--- NOTE | 2024-01-29 14:25 | NUR ---
SW notified by RN that daughter brought copy of DPOA documents for patient's chart naming her as DPOA and son as alternate DPOA. RN placed copy on chart.
[2024-01-29 15:03] VITALS: BP 175/67; PULSE 66; TEMP 99
--- NOTE | 2024-01-29 15:10 | NUR ---
Daughter informed SW that she would like referral sent to [facility] as first choice and [facility] as second choice. Referrals faxed
[2024-01-29] MEDS ORDERED: hydrALAZINE 25 MG TAB PO PRN (16:15)
[2024-01-29 16:22] VITALS: BP 181/63; PULSE 62
[2024-01-29] MEDS ORDERED: Isosorbide Mononitrate CR (24-HR) 60 MG TAB PO SCH (16:30)
[2024-01-29 16:51] VITALS: TEMP 100.7
--- NOTE | 2024-01-29 16:52 | NUR ---
Elevated temperature called to Dr Pierce
[2024-01-29] MEDS ORDERED: Iohexol 300 - 100 ML VIAL IV ONE (16:54)
[2024-01-29] MEDS ORDERED: NS 100 ML IV SCH (16:54)
[2024-01-29 18:03] VITALS: BP 154/66; PULSE 78; TEMP 98.3
[2024-01-29] MEDS ORDERED: rOPINIRole 0.5 MG TAB PO SCH (21:00)
[2024-01-29] MEDS ORDERED: Atorvastatin 80 MG TAB PO SCH (21:00)
[2024-01-29] MEDS ORDERED: Memantine 10 MG TAB PO SCH (21:00)
[2024-01-29] MEDS ORDERED: Donepezil 5 MG TAB PO SCH (21:00)
[2024-01-29] MEDS ORDERED: Escitalopram 10 MG TAB PO SCH (21:00)
[2024-01-29 21:10] VITALS: BP_SYST 154
[2024-01-29] MEDS ORDERED: Acetaminophen 500 MG TAB PO SCH (22:00)
[2024-01-29 23:34] VITALS: BP 118/56; PULSE 65; TEMP 99.1
[2024-01-30] VITALS (9 sets, daily range): BP systolic 115–158; BP diastolic 41–69; PULSE 59–76; TEMP 97.4–99.2
[2024-01-30 06:26] LABS: COLLECTION METHOD CLEAN CATCH
[2024-01-30 06:34] LABS: BASO % 0.1 % (0.0-2.0); EOS % 0.1 % (0.0-4.0); GRAN # 5.1 K/mm3 (1.4-6.5); HEMOGLOBIN 11.7 g/dl (13.5-18.0); LYMPH # 1.4 K/mm3 (1.2-3.4); LYMPH % 18.8 % (20.0-51.0); MEAN CELL VOLUME 91 fl (80.0-100.0); MEAN CORPUSCULAR HEMOGLOBIN 30 pg (27-31); MEAN CORPUSCULAR HGB CONC 32 g/dl (33.0-37.0); MEAN PLATELET VOLUME 9.9 fl (7.4-10.4); MONO % 12.7 % (1.7-9.3); PLATELET COUNT 223 K/mm3 (130-400); RED BLOOD COUNT 3.97 M/mm3 (4.20-5.60); REDCELL DISTRIBUTION WIDTH-CV 16.6 % (11.5-14.5)
[2024-01-30 06:47] LABS: HEMATOCRIT 36.1 % (42.0-52.0)
[2024-01-30 06:49] LABS: PH 5.5 (5.0-8.5); URINE APPEARANCE CLEAR (CLEAR/HAZY); URINE BLOOD NEGATIVE (NEGATIVE); URINE COLOR Dark Yellow (YELLOW); URINE GLUCOSE NEGATIVE (NEGATIVE); URINE KETONE 2+ (NEGATIVE); URINE NITRATE NEGATIVE (NEGATIVE); URINE PROTEIN(semi-quant) 1+ (NEGATIVE)
[2024-01-30 06:55] LABS: CALCIUM 8.7 mg/dL (8.4-10.2); CREATININE, serum 0.91 mg/dL (0.72-1.25); POTASSIUM 3.6 mEq/L (3.5-4.5)
--- NOTE | 2024-01-30 08:00 | NUR ---
Patient laying in bed sleeping, easily awakened with verbal command. Alert, but confused. IV CDI. Call light within reach. Bed alarm on. Family at the bedside
[2024-01-30] MEDS ORDERED: Lisinopril 20 MG TAB PO SCH (09:00)
[2024-01-30] MEDS ORDERED: Lidocaine 4% Topical Patch TP SCH ×2 (09:00)
[2024-01-30] MEDS ORDERED: Famotidine 20 MG TAB PO SCH (09:00)
--- NOTE | 2024-01-30 11:16 | NUR ---
hot tamale worker followed up on referral that was sent to [facility]. [facility] is currently full and would not be able to accept. hot tamale worker left voicemail with [facility] to determine if they can accept patient for rehab. Discharge plan: SNF
[2024-01-31] VITALS (9 sets, daily range): BP systolic 143–163; BP diastolic 56–71; PULSE 60–83; TEMP 97.5–98.3
--- NOTE | 2024-01-31 06:45 | NUR ---
appears to be sleeping with CPAP on, bedside shift report received from JAEL Gonzales, sister awake at bedside
[2024-01-31 06:55] LABS: GRAN # 4.9 K/mm3 (1.4-6.5); GRAN % 72.8 % (42.2-75.2); HEMOGLOBIN 11.7 g/dl (13.5-18.0); LYMPH # 1.1 K/mm3 (1.2-3.4); LYMPH % 16.3 % (20.0-51.0); MEAN CELL VOLUME 89 fl (80.0-100.0); MEAN CORPUSCULAR HEMOGLOBIN 30 pg (27-31); MEAN CORPUSCULAR HGB CONC 34 g/dl (33.0-37.0); MEAN PLATELET VOLUME 9.6 fl (7.4-10.4); MONO # 0.7 K/mm3 (0.1-0.6); MONO % 10.5 % (1.7-9.3); PLATELET COUNT 213 K/mm3 (130-400); RED BLOOD COUNT 3.93 M/mm3 (4.20-5.60); REDCELL DISTRIBUTION WIDTH-CV 16.5 % (11.5-14.5)
[2024-01-31 07:00] LABS: HEMATOCRIT 34.9 % (42.0-52.0)
[2024-01-31 07:08] LABS: CALCIUM 8.6 mg/dL (8.4-10.2); CREATININE, serum 0.77 mg/dL (0.72-1.25); POTASSIUM 3.8 mEq/L (3.5-4.5)
--- NOTE | 2024-01-31 07:26 | NUR ---
awake and sitting up in bed eating breakfast, denies needs daughter now at bedside also
--- NOTE | 2024-01-31 08:00 | NUR ---
assisted up to bedside commode with assitance of DEPARTMENT OPERATIONS MANAGER, depends on with urine from trying to use urinal, had large semi formed brown bowel movement, am hygiene completed while up and full assessment completed, see interventions for further info, has multiple bruises over his body from recent falls at home, left forearm with coban dressing removed, has laceration with sutures to underside of left forearm and weeping area to upper side of forearm, both were covered with non adherant dressing then ABD dressing and wrapped with corin wrap, has 2 small scabs to left side of forehead, denies pain or needs
--- NOTE | 2024-01-31 08:37 | NUR ---
wound care in to see patient at this time
[2024-01-31] MEDS ORDERED: Clopidogrel 75 MG TAB PO SCH (09:00)
--- NOTE | 2024-01-31 09:20 | NUR ---
resting in bed, takes meds without difficulty, sister remains at bedside
--- NOTE | 2024-01-31 10:02 | NUR ---
dressing to left forearm redressed by wound care see wound care notes for further info
--- NOTE | 2024-01-31 10:26 | NUR ---
Forming Machine Tender sent updates to Juarez at [facility] via secure email.
--- NOTE | 2024-01-31 11:08 | NUR ---
Radiology Physician spoke with Oma at [facility] who is able to accept patient tomorrow. SW contacted patient's daughter, Jenni to update her on plan for discharge tomorrow. Discharge Plan; [facility]
--- NOTE | 2024-01-31 11:23 | NUR ---
D: Belt Glass Sander stopped by room on rounds. A: Pt was asleep with family in the room. Belt Glass Sander spoke with family and they have no needs right now. P: Belt Glass Sander informed family that if they needed anything from the bar attendant area to let their nurse know. Belt Glass Sander will follow up as needed.
--- NOTE | 2024-01-31 12:20 | NUR ---
RECYCLING TECH called nurse to room to check on patient, he is moving about in bed and trying to place ice bag on his back, he just keeps thrashing about, he is very diaphoetic and gown and sheets are wet, when asked patient what he is trying to do he can't really say, BP 173/77, HR 71, O2 sat 96%, asked patient if he would like to sit up in chair and he responds yes, he is oriented to self and place, will follow directions when direct with him but then he also continues to try and help, telemetry leads off and replaced, assisted him with sitting up on side of bed and again with directness he will follow commands, assisted over and into recliner, after he is in recliner his skin is dry now and not diaphoretic, hygiene completed, he is quiet in chair without thrashing about, unable to say what he was doing earlier, sister has remained at bedside, after sitting in recliner and is quiet BP is now 142/65, HR 71, and O2 sat 98%
--- NOTE | 2024-01-31 13:30 | NUR ---
called to room and patient had been incontinent of large amount liquid stool, care provided and remains up in chair
--- NOTE | 2024-01-31 14:16 | NUR ---
remains sitting up in recliner and is quiet
--- NOTE | 2024-01-31 15:37 | NUR ---
remains resting in chair
--- NOTE | 2024-01-31 17:30 | NUR ---
assisted back to bed by Marielena and JACKELYN
--- NOTE | 2024-01-31 18:45 | NUR ---
PATIENT RESTING IN BED WITH EYES CLOSED WITH TV ON WITH NO FAMILY PRESENT WITH NO ACUTE DISTRESS NOTED. PATIENT ON ROOM AIR. INT TO RIGHT FOREARM INTACT WITH NO COMPLICATIONS NOTED. TELEMETRY INTACT. DRESSING TO LEFT ARM INTACT, CLEAN, AND DRY. BEDSIDE SHIFT REPORT COMPLETED WITH RAMIREZ AT THIS TIME. PATIENT DENIES ANY NEEDS. BED IN LOW POSITION WITH WHEELS LOCKED WITH RAILS UP X3 AND CALL LIGHT WITHIN REACH. BED ALARM ON.
--- NOTE | 2024-01-31 18:52 | NUR ---
bedside shift report given to JAEL Goodwin, patietn is resting in bed with eyes closed
--- NOTE | 2024-01-31 19:37 | NUR ---
PATIENT RESTING IN BED WITH TV ON WITH NO FAMILY PRESENT WITH NO ACUTE DISTESS NOTED. PATIENT ON ROOM AIR. TELEMETRY INTACT. INT TO RIGHT FOREARM INTACT WITH NO COMPLICATIONS NOTED. DRESSING TO LUE CLEAN, DRY, AND INTACT. ASSESSMENT AND VITAL SIGNS COMPLETED AT THIS TIME. PATIENT TOLERATED WELL. URINAL EMPTIED OF 225 ML OF CLEAR YELLOW URINE EMPTIED. BED PAD AND MACK PULL-UP CHANGED. PATIENT DENIES ANY OTHER NEEDS AT THIS TIME. BED IN LOW POSITION WITH WHEELS LOCKED LOCKED WITH RAILS UP X3 AND CALL LIGHT WITHIN REACH. BED ALARM ON.
--- NOTE | 2024-01-31 20:34 | NUR ---
PATIENT PAD AND PULL-UP CHANGED. [facility] PROVIDED. PATIENT TOLERATED WELL.
--- NOTE | 2024-01-31 20:55 | NUR ---
ICE PACK GIVEN PER PATIENT REQUEST AND PLACED ON BACK.
--- NOTE | 2024-01-31 22:40 | NUR ---
PATIENT ASSISTED UP TO CHAIR WITH ONE ASSIST. GAIT STEADY BUT SLOW. PATIENT GOWN CHANGED DUE TO BEING DIAPHORETIC. BED LINEN CHANGED DUE TO BEING DAMP FROM SWEATING. PATIENT TELEMETRY PLACED BACK ON. PATIENT ASSISTED BACK TO BED PER REQUEST. PATIENT HELPED TO REPOSITION FOR COMFORT. PATIENT TOLERATED WELL. ALL NEEDS MET. BED IN LOW POSITION WITH WHEELS LOCKED WITH RAILS UP X3 AND CALL LIGHT WITHIN REACH. BED ALARM ON.
[2024-02-01 00:02] VITALS: BP 165/74; PULSE 73; TEMP 98.2
[2024-02-01 00:05] VITALS: BP_SYST 165
--- NOTE | 2024-02-01 04:30 | NUR ---
JS TOLD PRIMARY NURSE THAT SHE WOULD GET PATIENT VITAL SIGNS WHEN HE WOKE UP DUE TO PATIENT FINALLY SLEEPING SOME AT THIS TIME.
[2024-02-01 07:25] LABS: CALCIUM 8.6 mg/dL (8.4-10.2); CREATININE, serum 0.75 mg/dL (0.72-1.25); POTASSIUM 4.3 mEq/L (3.5-4.5)
[2024-02-01 07:41] VITALS: BP 155/67; PULSE 64; TEMP 97.5
--- NOTE | 2024-02-01 09:37 | NUR ---
BHARGAV attended clinical rounds. Patient stable for transfer to SNF today. BHARGAV spoke with Mandy at [facility] who states that they can transport patient at 1030. RN and Dr. Pierce notified of transport time. BHARGAV met with daughter to review Medicare IM form. Daughter in agreement with transfer to [facility] today and signed form. Original on chart and copy to daughter/DPOA. Discharge orders and updated clinicals faxed to [facility]. Discharge plan: [facility]
[2024-02-01] MEDS ORDERED: PLAVIX 75MG TAB75 MG PO (09:57)
[2024-02-01] MEDS ORDERED: LIPITOR 80MG80 MG PO (09:57)
--- NOTE | 2024-02-01 10:38 | NUR ---
rEPORT CALLED TO KEITH
--- NOTE | 2024-02-01 10:48 | NUR ---
Patient taken by lashon lang with personal belongings and discharge packet
--- NOTE | 2024-02-01 10:49 | NUR ---
Agree with student nurses assessment of the patient. PAtient A&Ox4. VSS. IV CDI. LF arm dressing CDI. Abrasion to left shoulder and knee. No further needs expressed.
== END 2024-02-01 10:50 | DRG 65 ==
LOC: COL.ER 06:02 → MEDICAL 09:22
PROVIDERS: Emergency Medicine; ADMIT Internal Medicine
DX: I63.9 Cerebral infarction, unspecified (principal); K50.90 Crohn's disease, unspecified, without complications; R29.705 NIHSS score 5; S51.812A Laceration without foreign body of left forearm, initial encounter; I10 Essential (primary) hypertension; I25.10 Atherosclerotic heart disease of native coronary artery without angina pectoris; Z95.0 Presence of cardiac pacemaker; G31.83 Neurocognitive disorder with Lewy bodies; F02.80 Dementia in other diseases classified elsewhere, unspecified severity, without behavioral disturbance, psychotic disturbance, mood disturbance, and anxiety; G20.A1 Parkinson's disease without dyskinesia, without mention of fluctuations; K21.9 Gastro-esophageal reflux disease without esophagitis; E03.9 Hypothyroidism, unspecified; M25.559 Pain in unspecified hip; M54.9 Dorsalgia, unspecified; Z66 Do not resuscitate
CPT/HCPCS: Q3014; Q9967

== ENCOUNTER 2024-02-22 15:49 | Emergency (ER) | payer MEDICARE, BC ==
[~2024-02-22] VITALS: Ht 175.3 cm; Wt 94.5 kg
[~2024-02-22 15:49] MED LIST changes: +ADVIL200 MG PO; +AIRBORNE CHEWA1 EAC1 PO; +ALLEGRA 180MG180 MG PO; +LIPITOR 80MG80 MG PO; +MELATONIN3 M1 PO; +PLAVIX 75MG TAB75 MG PO; +RT ADVAIR 228 DISKUS IH; +TESSALON P100 MG/CAP PO
[2024-02-22] MEDS ORDERED: NS 1,000 ML IV ONE (17:00)
[2024-02-22 17:26] LABS: GRAN # 3.8 K/mm3 (1.4-6.5); GRAN % 62.8 % (42.2-75.2); HEMATOCRIT 40.3 % (42.0-52.0); HEMOGLOBIN 12.9 g/dl (13.5-18.0); LYMPH # 1.6 K/mm3 (1.2-3.4); MEAN CELL VOLUME 96 fl (80.0-100.0); MEAN CORPUSCULAR HEMOGLOBIN 31 pg (27-31); MEAN CORPUSCULAR HGB CONC 32 g/dl (33.0-37.0); MEAN PLATELET VOLUME 9.6 fl (7.4-10.4); MONO # 0.6 K/mm3 (0.1-0.6); PLATELET COUNT 279 K/mm3 (130-400); REDCELL DISTRIBUTION WIDTH-CV 17.2 % (11.5-14.5)
[2024-02-22 17:58] LABS: ALBUMIN 3.7 g/dL (3.4-4.8); BILIRUBIN,TOTAL 0.7 mg/dL (0.2-1.2); CALCIUM 8.9 mg/dL (8.4-10.2); CREATININE, serum 0.81 mg/dL (0.72-1.25); POTASSIUM 4.1 mEq/L (3.5-4.5)
[2024-02-22 18:54] LABS: COLLECTION METHOD CLEAN CATCH
[2024-02-22 19:07] LABS: PH 5.5 (5.0-8.5); URINE APPEARANCE CLEAR (CLEAR/HAZY); URINE BLOOD NEGATIVE (NEGATIVE); URINE COLOR YELLOW (YELLOW); URINE GLUCOSE NEGATIVE (NEGATIVE); URINE KETONE TRACE (NEGATIVE); URINE NITRATE NEGATIVE (NEGATIVE); URINE PROTEIN(semi-quant) NEGATIVE (NEGATIVE); URINE UROBILINOGEN 0.2 E.U/dL (0.2-1.0)
[2024-02-22 19:34] VITALS: BP 163/98; PULSE 65; TEMP 98.5
== END 2024-02-22 19:50 | disposition home or self-care (01) ==
LOC: COL.ER 15:49
PROVIDERS: Personal Emergency Response Attendant
DX: R41.0 Disorientation, unspecified (principal); R29.6 Repeated falls; I25.10 Atherosclerotic heart disease of native coronary artery without angina pectoris; Z79.82 Long term (current) use of aspirin; Z95.5 Presence of coronary angioplasty implant and graft; Z79.02 Long term (current) use of antithrombotics/antiplatelets
CPT/HCPCS: J7030

== ENCOUNTER → 2024-03-25 | Outpatient (REF) | payer MEDICARE, BC | LOC: ZCOL.LAB 13:57 | DX: D51.0 Vitamin B12 deficiency anemia due to intrinsic factor deficiency (principal) ==